=== PATIENT | male | born 1995 | race Caucasian/White ===

== ENCOUNTER 2016-11-09 22:37 | Emergency (ER) | payer OTHER ==
[2016-11-10] MEDS ORDERED: KETOROLAC 60 MG/2 ML VIAL IM STA (00:12)
[2016-11-10] MEDS ORDERED: ONDANSETRON ODT 4 MG TABLET TL STA (00:12)
[2016-11-10] MEDS ORDERED: ONDANSETRON ODT 4 MG TABLET ONE (00:22)
[2016-11-10] MEDS ORDERED: KETOROLAC 60 MG/2 ML VIAL ONE (00:22)
== END 2016-11-10 01:03 | disposition home or self-care (01) ==
DX: R30.0 Dysuria (principal); R59.0 Localized enlarged lymph nodes; R11.0 Nausea
CPT/HCPCS: 81003; 96372; 99283; Q0162

== ENCOUNTER 2019-08-29 11:14 | Outpatient (CLI) | payer OTHER | END 2019-08-29 11:15 | disposition critical access hospital (66) | LOC: EMS 11:14 | PROVIDERS: ATTEND Surgery | DX: R07.9 Chest pain, unspecified (principal); R40.20 Unspecified coma; R68.83 Chills (without fever); R29.898 Other symptoms and signs involving the musculoskeletal system | CPT/HCPCS: A0425; A0427 ==

== ENCOUNTER 2019-08-29 11:36 | Emergency (ER) | payer OTHER ==
[2019-08-29 11:48] VITALS: BP 144/89
[2019-08-29 12:12] LABS: MUDS CUTOFF CONCENTRATIONS CUTOFF CONC BELOW:
[2019-08-29 12:20] LABS: BILIRUBIN,URINE NEGATIVE (NEGATIVE); GLUCOSE, URINE (UA) 500 mg/dL (NEGATIVE); KETONES,URINE (UA) NEGATIVE (NEGATIVE); LEUKOCYTE ESTERASE, URINE NEGATIVE (NEGATIVE); NITRITE,URINE NEGATIVE (NEGATIVE); OCCULT BLOOD,URINE NEGATIVE (NEGATIVE); PH,URINE 6.5 PH (5.0-7.5); PROTEIN,URINE TRACE mg/dL (NEGATIVE); UROBILINOGEN,URINE 0.2 (NORMAL) E.U./dL (NORMAL)
[2019-08-29 12:21] LABS: CLARITY,URINE CLEAR (CLEAR)
[2019-08-29 12:32] LABS: AMPHETAMINE SCREEN,URINE NEGATIVE (NEGATIVE); BENZODIAZEPINES SCREEN, URINE NEGATIVE (NEGATIVE); COCAINE SCREEN URINE NEGATIVE (NEGATIVE); METHADONE SCREEN, URINE NEGATIVE (NEGATIVE); METHAMPHETAMINES SCREEN, URINE NEGATIVE (NEGATIVE); OPIATE SCREEN, URINE NEGATIVE (NEGATIVE); OXYCODONE SCREEN, URINE NEGATIVE (NEGATIVE); PROPOXYPHENE SCREEN, URINE NEGATIVE (NEGATIVE); TRICYCLIC ANTIDEPRESSANT,URINE NEGATIVE (NEGATIVE)
== END 2019-08-29 12:25 | disposition left against medical advice (07) ==
LOC: EDUNIT# → ED 11:36
DX: Z53.21 Procedure and treatment not carried out due to patient leaving prior to being seen by health care provider (principal)
CPT/HCPCS: 80053; 80306; 80307; 80320; 80329; 81001; 81003; 83690; 84443; 85025; 87086

== ENCOUNTER 2019-08-29 12:59 | Emergency (ER) | payer OTHER ==
--- NOTE | 2019-08-29 16:26 | ED Physician Documentation ---
History of Present Illness - Stated complaint Stated Complaint: OD/DR NOTE - Chief complaint Chief Complaint: General - History obtained from History obtained from: Patient, Family - History of Present Illness Timing: Today Pain level max: 6 Pain level now: 5 Improved by: narcan - Additonal information Additional information: 24-year-old male took Percocet that he bought off of the street this morning. He states that the next thing that he knew his was screaming, performing CPR on him. She states that she started CPR after calling 911. EMS arrived and Narcan. He awoke, was transported here and immediately left to the emergency department without being evaluated. He then checked back in as he needs a note for work and his ribs are hurting. He is not suicidal or homicidal. Review of Systems Constitutional: denies: Fever, Chills GI: denies: Vomiting, Diarrhea Skin: denies: Rash Neurologic: denies: Headache PD PAST MEDICAL HISTORY - Past Medical History Cardiovascular: None Respiratory: None Endocrine/Autoimmune: None GI: None : None HEENT: Chronic sinusitis Psych: None Musculoskeletal: None Derm: None - Past Surgical History Past Surgical History: No - Present Medications Home Medications: Ambulatory Orders Medication Instructions Recorded Confirmed Ondansetron Odt [Zofran] 4 mg TL Q6H PRN #14 tablet 11/10/16 - Allergies Allergies/Adverse Reactions: Allergies Allergy/AdvReac Type Severity Reaction Status Date / Time azithromycin [From Zithromax] AdvReac Unknown Nausea Verified 08/29/19 11:41 - Social History Does the pt smoke?: No Smoking Status: Never smoker Does the pt drink ETOH?: No Does the pt have substance abuse?: Yes - Immunizations Immunizations are current?: Yes - POLST Patient has POLST: No PD ED PE NORMAL - Vitals Vital signs reviewed: Yes - General General: Alert and oriented X 3, No acute distress - HEENT HEENT: Moist mucous membranes - Neck Neck: Supple, no meningeal sign - Cardiac Cardiac: RRR - Respiratory Respiratory: No respiratory distress, Clear bilaterally, Other (Chest wall tenderness over the left lower chest wall. No crepitus. No ecchymosis.) - Derm Derm: Warm and dry - Neuro Neuro: Alert and oriented X 3 Results - Vitals Vitals: Vital Signs - 24 hr 12/23/19 13:05 Temperature 36.4 C L Heart Rate 103 H Respiratory 18 Rate Blood Pressure 119/55 L O2 Saturation 98 Oxygen O2 Source Room air PD MEDICAL DECISION MAKING - ED course Complexity details: considered differential, d/w patient, d/w family ED course: Patient after an accidental overdose today. Declines any rib x-rays. Counseled regarding the need to stop using medications are not prescribed to him. He denies any other drug use. is comfortable taking him home at this time. Patient and family counseled regarding signs and symptoms for which I believe and urgent re-evaluation would be necessary. Patient with good understanding of and agreement to plan and is comfortable going home at this time This document was made in part using voice recognition software. While efforts are made to proofread this document, sound alike and grammatical errors may occur. Departure - Departure Disposition: 01 Home, Self Care Clinical Impression: Narcotic overdose Qualifiers: Encounter type: initial encounter Injury intent: accidental or unintentional Qualified Code(s): T40.601A - Poisoning by unspecified narcotics, accidental (unintentional), initial encounter Condition: Good Instructions: ED Overdose Opiate Follow-Up: your,doctor in 1 week [Other] Comments: Return if you worsen. You can use Motrin or Tylenol as needed for pain. Follow-up with your doctor for further care. Please refrain from using any narcotics that are bought off of the street. Forms: Activity restrictions
[2019-08-29 16:33] VITALS: BP 127/54
== END 2019-08-29 16:37 | disposition home or self-care (01) ==
LOC: ED 12:59
DX: T40.2X1A Poisoning by other opioids, accidental (unintentional), initial encounter (principal); X58.XXXA Exposure to other specified factors, initial encounter
CPT/HCPCS: 80053; 80306; 80307; 80320; 80329; 81001; 81003; 83690; 84443; 85025; 87086

== ENCOUNTER 2019-09-24 10:50 | Outpatient (CLI) | payer OTHER | END 2019-09-24 10:51 | disposition E | LOC: EMS 10:50 | PROVIDERS: ATTEND Surgery | DX: I46.9 Cardiac arrest, cause unspecified (principal) | CPT/HCPCS: A0425; A0429 ==